=== PATIENT | female | born 2000 | race Caucasian/White ===

== ENCOUNTER → 2021-10-22 01:56 | Observation (INO) ==
[2021-10-22 00:26] LABS: Bilirubin,Urine Negative (Negative); Blood,Urine Negative (Negative); Glucose,Urine (UA) Normal (Normal); Ketones,Urine Trace mg/dL (Negative); Leukocyte Esterase,Urine Small (Negative); Nitrite,Urine Negative (Negative); Protein,Urine Negative (Neg-Trace); Specific Gravity,Urine 1.015 (1.010-1.025); Urobilinogen,Urine Normal (Normal)
[2021-10-22 00:32] LABS: Clarity,Urine Slightly Hazy (Clear); Color,Urine Colorless (Yellow)
[2021-10-22 00:38] LABS: Bacteria,Urine Many per hpf (None-Few); RBC,Urine 0-3 per hpf (0-3); Squamous Epithelial Cell,Urine Many per hpf (None-Few)
[~2021-10-22 01:56] MED LIST: Ringers Solution, Lactated 1,000 ML IVC ONE; Ringers Solution, Lactated 1,000 ML ONE
== END | disposition home or self-care (01) ==
LOC: 1NENULAB
PROVIDERS: ADMIT Advanced Practice Midwife; ATTEND Advanced Practice Midwife

== ENCOUNTER 2021-11-05 11:47 | Inpatient (IN) ==
[2021-11-05] MEDS ORDERED: Famotidine 20 MG/2 ML VIAL IVP PRN (12:24)
[2021-11-05] MEDS ORDERED: Azithromycin 500 MG in 0.9 % Sodium Chloride 250 ML IVPB PRN (12:24)
[2021-11-05] MEDS ORDERED: Penicillin G Potassium 5,000,000 UNIT in 0.9 % Sodium Chloride Mini Bag 100 ML IVPB ONE (12:24)
[2021-11-05] MEDS ORDERED: Naloxone 0.4 MG/ML INJ IVP PRN (12:24)
[2021-11-05] MEDS ORDERED: Metoclopramide 10 MG/2 ML VIAL IVP PRN (12:24)
[2021-11-05 12:50] LABS: Basophils % 0.3 %; Eosinophils # 0.1 K/mcL (0.0-0.6); Eosinophils % 0.6 %; Hematocrit 37.7 % (35.3-44.9); Immature Granulocytes % 0.9 % (0-4); Lymphocytes # 2.1 K/mcL (0.6-4.6); Lymphocytes % 18.3 %; Mean Corpuscular HGB Conc 34.5 g/dL (31.6-35.5); Mean Corpuscular Hemoglobin 28.9 pg (28.0-33.3); Mean Corpuscular Volume 83.8 fL (83.0-100.0); Mean Platelet Volume 9.9 fL (9.4-12.4); Monocytes # 0.8 K/mcL (0.0-1.3); Monocytes % 7.3 %; Neutrophils # 8.4 K/mcL (1.6-8.9); Platelet Count 334 K/mcL (140-400); Red Cell Distribution Width 13.4 % (11.5-14.5); Segmented Neutrophils % 72.6 %; White Blood Count 11.5 K/mcL (4.3-11.1)
[2021-11-05] MEDS: Ringers Solution, Lactated 1,000 ML IVC SCH ×2 (12:54→21:18)
[2021-11-05 13:23] LABS: Influenza A PCR Negative (Negative); Influenza B PCR Negative (Negative); Resp. Syncytial Virus PCR Negative (Negative)
[2021-11-05 13:26] LABS: SARS-CoV-2 by PCR (In House) Negative (Negative)
[2021-11-05] MEDS: Oxytocin 20 units/ LR 1000 mL 20 UNIT/1,000 ML BAG IVC SCH (15:13)
[2021-11-05 15:37] LABS: Amphetamine Screen,Urine Negative ng/mL (Cutoff=1000); Barbiturate Screen,Urine Negative ng/mL (Cutoff=200); Benzodiazepines Screen,Urine Negative ng/mL (Cutoff=200); Cannabinoid Screen,Urine Negative ng/mL (Cutoff = 50); Cocaine Screen,Urine Negative ng/mL (Cutoff= 300); Opiate Screen,Urine Negative ng/mL (Cutoff=300); Phencyclidine Screen,Urine Negative ng/mL (Cutoff=25)
[2021-11-05] MEDS: Penicillin G Potassium 2,500,000 UNIT/105 ML MLS IVPB SCH ×2 (17:30→21:18)
[2021-11-06] MEDS: Penicillin G Potassium 2,500,000 UNIT/105 ML MLS IVPB SCH ×6 (01:26→20:20)
[2021-11-06] MEDS: *HR* Nalbuphine 10 MG/ML AMPUL IV PRN ×2 (03:20→17:49)
[2021-11-06] MEDS: Ringers Solution, Lactated 1,000 ML IVC SCH ×2 (08:11→20:20)
[2021-11-06] MEDS ORDERED: miSOPROStoL 25 MCG TABLET PO PRN (11:44)
[2021-11-06] MEDS: Oxytocin 20 units/ LR 1000 mL 20 UNIT/1,000 ML BAG IVC SCH (16:10)
[2021-11-06] MEDS ORDERED: Epidural Premix (fent/bupiv) 110 ML EP ONE (18:59)
[2021-11-06] MEDS ORDERED: Bupivacaine-MPF 0.25% 10 ML VIAL EP ONE (19:43)
[2021-11-06] MEDS ORDERED: Naloxone 0.4 MG/ML INJ IVP PRN (19:43)
[2021-11-06] MEDS ORDERED: Ondansetron 4 MG/2 ML VIAL IVP PRN (19:43)
[2021-11-06] MEDS ORDERED: EPHEDrine 50 MG/ML VIAL IVP PRN (19:43)
[2021-11-06] MEDS ORDERED: *HR* FentaNYL (PF) 100 MCG/2 ML VIAL EP ONE (19:43)
[2021-11-06] MEDS ORDERED: Ropivacaine/PF 0.2% 20 ML VIAL EP ONE (19:43)
[2021-11-07] MEDS ORDERED: Ropivacaine/PF 0.2% 20 ML VIAL ONE (00:04)
[2021-11-07] MEDS: Penicillin G Potassium 2,500,000 UNIT/105 ML MLS IVPB SCH ×2 (00:38→11:13)
[2021-11-07] MEDS: Ringers Solution, Lactated 1,000 ML IVC SCH ×2 (00:39→11:14)
[2021-11-07] MEDS ORDERED: Lidocaine 1% 20 ML MDV ONE (04:15)
[2021-11-07] MEDS ORDERED: Lanolin 7 G OINT...G. TP PRN (07:52)
[2021-11-07] MEDS ORDERED: Benzocaine/Menthol 56 GM AEROSOL SPRAY TP PRN (07:52)
[2021-11-07] MEDS ORDERED: *HR* OxyCODONE Immed Rel 5 MG TABLET PO PRN (07:52)
[2021-11-07] MEDS ORDERED: Ondansetron ODT 4 MG TAB.RAPDIS SL PRN (07:52)
[2021-11-07] MEDS ORDERED: Measles/Mumps/Rubella Vacc 0.5 ML VIAL SQ PRN (07:52)
[2021-11-07] MEDS ORDERED: Prenatal Vit/FA 1 EACH TABLET PO SCH (09:00)
[2021-11-07] MEDS: Acetaminophen 325 MG TABLET PO SCH ×2 (11:11→16:45)
[2021-11-07] MEDS: Epidural Premix (fent/bupiv) 110 ML EP SCH ×2 (11:12→11:13)
[2021-11-07] MEDS: Oxytocin 20 units/ LR 1000 mL 20 UNIT/1,000 ML BAG IVC SCH ×2 (11:15→16:45)
[2021-11-07] MEDS ORDERED: Ibuprofen 600 MG TABLET PO SCH (12:00)
[2021-11-07 16:37] VITALS: O2SAT 98
[2021-11-07 17:08] VITALS: BP 105/65; PULSE 100; TEMP 98.1
== END 2021-11-07 20:00 | disposition home or self-care (01) | DRG 768 ==
LOC: 1NENULAB → 1NENUOBS 11-07 07:53
PROVIDERS: ADMIT Obstetrics & Gynecology; ATTEND Obstetrics & Gynecology